=== PATIENT | male | born 1930 | race Caucasian/White ===

== ENCOUNTER 2018-06-12 10:05 | Emergency (ER) | payer MEDICARE, MEDICAID ==
[~2018-06-12] VITALS: Ht 167.6 cm; Wt 59.0 kg
[~2018-06-12 10:05] MED LIST: AMLO-511 PO; LOSA25TA41 PO
[2018-06-12 10:48] LABS: BASOPHILS % (AUTO) 0.2 % (0.0-2.0); EOSINOPHILS % (AUTO) 3.4 % (1.0-6.0); HEMATOCRIT 37.2 % (41-53); HEMOGLOBIN 13.1 g/dL (13.5-17.5); LYMPHOCYTES # (AUTO) 1.2 K/uL (1.0-4.8); LYMPHOCYTES % (AUTO) 13.8 % (22.0-44.0); MEAN CORPUSCULAR HEMOGLOBIN 31.9 pg (26.0-34.0); MEAN CORPUSCULAR HGB CONC 35.1 G/dL (31.0-37.0); MEAN CORPUSCULAR VOLUME 91 fL (80-100); MONOCYTES # (AUTO) 0.7 K/uL (0.1-1.0); MONOCYTES % (AUTO) 8.4 % (2.0-9.0); NEUTROPHILS # (AUTO) 6.6 K/uL (1.8-7.7); NEUTROPHILS % (AUTO) 74.2 % (40.0-70.0); PLATELET COUNT (AUTO) 194 K/uL (150-450); RED CELL DISTRIBUTION WIDTH 12.9 % (11.5-14.5)
[2018-06-12] MEDS ORDERED: ONDANSETRON HCL 4 MG/2 ML VIAL IVP ONE (11:00)
[2018-06-12] MEDS ORDERED: MECLIZINE HCL 25 MG TABLET PO ONE (11:00)
[2018-06-12 11:20] LABS: ANION GAP 8 mmol/L (8-16); CARBON DIOXIDE 29 mmol/L (22-29); CHLORIDE 101 mmol/L (98-107); CREATININE 1.12 mg/dL (0.60-1.30); GLOMERULAR FILTR. RATE CALC > 60 mL/min (>60); GLUCOSE,RANDOM 150 mg/dL (70-110); POTASSIUM 4.2 mmol/L (3.5-5.1); SODIUM SERUM 138 mmol/L (136-145); UREA NITROGEN, BLOOD 16 mg/dL (7-18)
[2018-06-12 11:25] LABS: ALANINE AMINOTRANSFERASE 19 U/L (12-78); ALBUMIN 3.5 g/dL (3.4-5.0); ALKALINE PHOSPHATASE 88 U/L (46-116); ASPARTATE AMINOTRANSFERASE 16 U/L (15-37); BILIRUBIN,TOTAL 1.1 mg/dL (0.1-1.0)
[2018-06-12 11:38] LABS: TOTAL PROTEIN, SERUM 6.9 g/dL (6.4-8.2)
[2018-06-12 13:01] LABS: APPEARANCE,URINE CLEAR (CLEAR); BILIRUBIN,URINE NEGATIVE (NEGATIVE); GLUCOSE, URINE (UA) NEGATIVE (NEGATIVE); KETONES,URINE NEGATIVE (NEGATIVE); LEUKOCYTE ESTERASE ,URINE NEGATIVE (NEGATIVE); NITRATE,URINE NEGATIVE (NEGATIVE); OCCULT BLOOD,URINE NEGATIVE (NEGATIVE); PH,URINE 6.5 (5.0-8.0); UROBILINOGEN,URINE 0.2 mg/dL (<=1.0)
[2018-06-12 13:03] LABS: BACTERIA,URINE None Seen /HPF (None Seen); PROTEIN,URINE NEGATIVE (NEGATIVE); RBC,URINE None Seen /HPF (0-2); WBC,URINE None Seen /HPF (0-5)
[2018-06-12 14:20] VITALS: BP 127/65
== END 2018-06-12 14:40 | disposition home or self-care (01) ==
LOC: EMS 10:07
DX: R55 Syncope and collapse (principal); R42 Dizziness and giddiness; R11.2 Nausea with vomiting, unspecified; R05 Cough; E78.00 Pure hypercholesterolemia, unspecified; I10 Essential (primary) hypertension; M19.90 Unspecified osteoarthritis, unspecified site
CPT/HCPCS: 36415; 70450; 80053; 81001; 84484; 85025; 93005; 96374; 99291; J2405

== ENCOUNTER 2018-11-12 15:16 | Emergency (ER) | payer MEDICARE, MEDICAID ==
[~2018-11-12] VITALS: Ht 162.6 cm; Wt 61.4 kg
[2018-11-12 15:22] VITALS: BP 162/70
[2018-11-12] MEDS ORDERED: LOPE1LIQ88 PO (15:31)
[2018-11-12] MEDS ORDERED: OMEP10 PO (15:31)
[2018-11-12] MEDS ORDERED: DiphenhydrAMINE HCL 25 MG CAPSULE PO ONE (16:00)
== END 2018-11-12 17:12 | disposition home or self-care (01) ==
LOC: EMS 15:18
DX: L25.9 Unspecified contact dermatitis, unspecified cause (principal); I10 Essential (primary) hypertension; E78.00 Pure hypercholesterolemia, unspecified; Z79.899 Other long term (current) drug therapy

== ENCOUNTER 2021-09-06 14:58 | Inpatient (IN) | payer MEDICARE, MEDICAID ==
[~2021-09-06] VITALS: Ht 175.3 cm; Wt 50.2 kg
[~2021-09-06 14:58] MED LIST changes: -AMLO-511 PO; +LOPE-202 PO; -LOSA25TA41 PO; +OMEP10 PO
[2021-09-06 16:32] LABS: BASOPHILS % (AUTO) 0.7 % (0.0-2.0); EOSINOPHILS % (AUTO) 1.3 % (1.0-6.0); HEMATOCRIT 27.8 % (41-53); LYMPHOCYTES # (AUTO) 0.9 K/uL (1.0-4.8); LYMPHOCYTES % (AUTO) 13.3 % (22.0-44.0); MEAN CORPUSCULAR HEMOGLOBIN 24.7 pg (26.0-34.0); MEAN CORPUSCULAR HGB CONC 32.4 G/dL (31.0-37.0); MEAN CORPUSCULAR VOLUME 76 fL (80-100); MONOCYTES # (AUTO) 0.6 K/uL (0.1-1.0); MONOCYTES % (AUTO) 8.2 % (2.0-9.0); NEUTROPHILS # (AUTO) 5.2 K/uL (1.8-7.7); NEUTROPHILS % (AUTO) 76.5 % (40.0-70.0); PLATELET COUNT (AUTO) 461 K/uL (150-450); RED BLOOD CELL COUNT(AUTO) 3.65 MIL/uL (4.50-5.90); RED CELL DISTRIBUTION WIDTH 16.9 % (11.5-14.5)
[2021-09-06 16:41] LABS: ANION GAP 8 mmol/L (8-16); CALCIUM, TOTAL 8.3 mg/dL (8.8-10.5); CARBON DIOXIDE 28 mmol/L (22-29); CHLORIDE 98 mmol/L (98-107); CREATININE 0.74 mg/dL (0.60-1.30); GLUCOSE,RANDOM 140 mg/dL (70-110); POTASSIUM 3.7 mmol/L (3.5-5.1); SODIUM SERUM 134 mmol/L (136-145); UREA NITROGEN, BLOOD 19 mg/dL (7-18)
[2021-09-06 16:42] LABS: GLOMERULAR FILTR. RATE CALC > 60 mL/min (>60)
[2021-09-06 16:51] LABS: ALANINE AMINOTRANSFERASE 9 U/L (12-78); ALBUMIN 2.3 g/dL (3.4-5.0); ALKALINE PHOSPHATASE 79 U/L (46-116); ASPARTATE AMINOTRANSFERASE 15 U/L (15-37); BILIRUBIN,TOTAL 0.3 mg/dL (0.1-1.0); TOTAL PROTEIN, SERUM 6.6 g/dL (6.4-8.2)
[2021-09-06] MEDS ORDERED: MAGNESIUM HYDROXIDE SUSPENSION 30 ML UDCUP PO PRN (17:15)
[2021-09-06] MEDS ORDERED: SODIUM CHLORIDE 0.9% 1,000 ML IV ONE (17:15)
[2021-09-06] MEDS: ACETAMINOPHEN 325 MG TABLET PO PRN (18:10)
[2021-09-06 19:40] VITALS: BP 149/92
[2021-09-06] MEDS: ZINC SULFATE 220 MG CAPSULE PO SCH (20:45)
[2021-09-06] MEDS: HEPARIN SODIUM,PORCINE 5,000 UNITS/ML VIAL SQ SCH (20:55)
[2021-09-07 00:14] VITALS: BP 141/89
[2021-09-07 04:42] VITALS: BP 138/81
[2021-09-07 08:52] VITALS: BP 149/89
[2021-09-07] MEDS: MULTIVITAMINS WITH MINERALS, THERAPEUTIC TABLET PO SCH (09:03)
[2021-09-07] MEDS: FAMOTIDINE 20 MG TABLET PO SCH (09:03)
[2021-09-07] MEDS: HEPARIN SODIUM,PORCINE 5,000 UNITS/ML VIAL SQ SCH ×2 (09:03→21:21)
[2021-09-07] MEDS: ZINC SULFATE 220 MG CAPSULE PO SCH ×2 (09:03→20:50)
[2021-09-07] MEDS: ASCORBIC ACID 500 MG TABLET PO SCH (09:03)
[2021-09-07] MEDS: ASPIRIN 81 MG CHEWABLE TABLET PO SCH (09:03)
[2021-09-07] MEDS: ACETAMINOPHEN 325 MG TABLET PO PRN ×3 (09:07→20:50)
[2021-09-07 14:26] LABS: HEMOGLOBIN A1C 5.2 % (3.8-5.6)
[2021-09-07 14:31] LABS: CHOL/HDL RATIO 2.3 (4.2-7.3); MAGNESIUM 1.8 mg/dL (1.80-2.40); PHOSPHORUS 3.1 mg/dL (2.5-4.9)
[2021-09-07 16:03] VITALS: BP 142/86
[2021-09-07 19:30] VITALS: BP 125/57
[2021-09-08 04:46] VITALS: BP 150/72
[2021-09-08 08:08] VITALS: BP 146/75
[2021-09-08] MEDS: ZINC SULFATE 220 MG CAPSULE PO SCH ×2 (08:16→21:36)
[2021-09-08] MEDS: ASPIRIN 81 MG CHEWABLE TABLET PO SCH (08:16)
[2021-09-08] MEDS: MULTIVITAMINS WITH MINERALS, THERAPEUTIC TABLET PO SCH (08:16)
[2021-09-08] MEDS: ASCORBIC ACID 500 MG TABLET PO SCH (08:16)
[2021-09-08] MEDS: HEPARIN SODIUM,PORCINE 5,000 UNITS/ML VIAL SQ SCH ×2 (08:16→21:36)
[2021-09-08] MEDS: FAMOTIDINE 20 MG TABLET PO SCH (08:16)
[2021-09-08] MEDS: ACETAMINOPHEN 325 MG TABLET PO PRN ×2 (08:17→21:35)
[2021-09-08 19:30] VITALS: BP 141/53
[2021-09-09 04:34] VITALS: BP 136/67
[2021-09-09 08:47] VITALS: BP 124/76
[2021-09-09] MEDS: FAMOTIDINE 20 MG TABLET PO SCH (09:07)
[2021-09-09] MEDS: ZINC SULFATE 220 MG CAPSULE PO SCH ×2 (09:07→20:19)
[2021-09-09] MEDS: MULTIVITAMINS WITH MINERALS, THERAPEUTIC TABLET PO SCH (09:07)
[2021-09-09] MEDS: HEPARIN SODIUM,PORCINE 5,000 UNITS/ML VIAL SQ SCH ×2 (09:07→20:10)
[2021-09-09] MEDS: ASPIRIN 81 MG CHEWABLE TABLET PO SCH (09:07)
[2021-09-09] MEDS: ASCORBIC ACID 500 MG TABLET PO SCH (09:07)
[2021-09-09] MEDS ORDERED: SODIUM CL IRRIG SOLN BOTTLE 250 ML IRRIG ONE (10:59)
[2021-09-09] MEDS: ACETAMINOPHEN 325 MG TABLET PO PRN ×2 (13:09→21:02)
[2021-09-09 15:53] VITALS: BP 147/69
[2021-09-09 19:50] VITALS: BP 145/74
[2021-09-09 22:45] VITALS: BP 142/61
[2021-09-10 05:30] VITALS: BP 130/57
[2021-09-10] MEDS: ASCORBIC ACID 500 MG TABLET PO SCH (08:20)
[2021-09-10] MEDS: MULTIVITAMINS WITH MINERALS, THERAPEUTIC TABLET PO SCH (08:20)
[2021-09-10] MEDS: HEPARIN SODIUM,PORCINE 5,000 UNITS/ML VIAL SQ SCH (08:20)
[2021-09-10] MEDS: FAMOTIDINE 20 MG TABLET PO SCH (08:20)
[2021-09-10] MEDS: ASPIRIN 81 MG CHEWABLE TABLET PO SCH (08:20)
[2021-09-10] MEDS: ZINC SULFATE 220 MG CAPSULE PO SCH (08:20)
[2021-09-10 08:29] VITALS: BP 142/62
[2021-09-10] MEDS ORDERED: THIAMINE 100 MG TABLET PO SCH (09:00)
[2021-09-10 16:32] VITALS: BP 120/68
[2021-09-10] MEDS ORDERED: MULT-248 PO (17:13)
[2021-09-10] MEDS ORDERED: THIA100T80 PO (17:13)
[2021-09-10] MEDS ORDERED: ZINC220C14 PO (17:14)
[2021-09-10] MEDS ORDERED: ASCO500 PO (17:14)
[2021-09-10] MEDS ORDERED: ASPI-1450 PO (17:14)
== END 2021-09-10 17:24 | DRG 380 ==
LOC: EMS 15:02 → 6S 18:29 → UNDOADMIN 19:24 → UNDODISIN 09-10 17:24
PROVIDERS: ADMIT Internal Medicine; ATTEND Internal Medicine
DX: L89.214 Pressure ulcer of right hip, stage 4 (principal); E43 Unspecified severe protein-calorie malnutrition; L89.222 Pressure ulcer of left hip, stage 2; R64 Cachexia; R62.7 Adult failure to thrive; D50.9 Iron deficiency anemia, unspecified; Z68.1 Body mass index [BMI] 19.9 or less, adult; Z79.899 Other long term (current) drug therapy; Z79.82 Long term (current) use of aspirin
CPT/HCPCS: 80053; 80061; 83036; 83735; 84100; 85025; 97162; 97166; 99285; J1644; J7030